=== PATIENT | female | born 1960 | race Caucasian/White ===

== ENCOUNTER 2022-05-16 12:12 | Emergency (ER) | payer OTHER ==
[~2022-05-16] VITALS: Ht 165.1 cm; Wt 72.6 kg
[2022-05-16 12:30] VITALS: BP_SYST 181
--- NOTE | 2022-05-16 12:30 | NUR ---
Patient to ER bed 3 to gown for evaluation. Side rails up.
--- NOTE | 2022-05-16 12:38 | NUR ---
DR MAGANA AT BEDSIDE EXAMINING THE PATIENT.
--- NOTE | 2022-05-16 12:52 | NUR ---
TAKEN TO RADIOLOGY DEPT FOR CT SCAN OF THE HEAD.
--- NOTE | 2022-05-16 12:58 | NUR ---
BROUGHT PT BACK TO ROOM 3.
--- NOTE | 2022-05-16 13:51 | NUR ---
Patient given written and verbal discharge instructions and verbalizes understanding. ER MD MAGANA discussed with patient the results and treatment provided. Patient in stable condition. ID arm band removed. Patient educated on pain management and to follow up with PMD. Pain Scale 0. Opportunity for questions provided and answered. Medication side effect fact sheet provided.
[2022-05-16 13:55] VITALS: BP_SYST 171
== END 2022-05-16 13:55 | disposition home or self-care (01) ==
LOC: SED 12:12
DX: F07.81 Postconcussional syndrome (principal); I16.0 Hypertensive urgency; R51.9 Headache, unspecified; R42 Dizziness and giddiness; I10 Essential (primary) hypertension; Z91.041 Radiographic dye allergy status; Z79.899 Other long term (current) drug therapy
CPT/HCPCS: 70450-TC; 76376; 99284